=== PATIENT | male | born 1945 | race Caucasian/White ===

== ENCOUNTER 2017-10-15 13:31 | Observation (INO) ==
[2017-10-15] MEDS ORDERED: Isovue-370 500 ML INFUS..BTL IV ONE (13:41)
[2017-10-15 14:09] LABS: Basophils % 0.5 %; Eosinophils # 0.1 K/mcL (0.0-0.6); Eosinophils % 1.6 %; Hematocrit 41.3 % (37.5-50.1); Hemoglobin 14.9 g/dL (12.9-16.9); Immature Granulocytes % 0.3 % (0-4); Lymphocytes # 2.6 K/mcL (0.6-4.6); Lymphocytes % 32.5 %; Mean Corpuscular HGB Conc 36.1 g/dL (31.6-35.5); Mean Corpuscular Hemoglobin 30.9 pg (28.0-33.3); Mean Corpuscular Volume 85.7 fL (83.0-100.0); Mean Platelet Volume 8.9 fL (9.4-12.4); Monocytes # 0.5 K/mcL (0.0-1.3); Monocytes % 6.7 %; Neutrophils # 4.6 K/mcL (1.6-8.9); Platelet Count 151 K/mcL (140-400); Red Blood Count 4.82 M/mcL (4.19-5.50); Red Cell Distribution Width 13.2 % (11.5-14.5); Segmented Neutrophils % 58.4 %
[2017-10-15 14:15] LABS: INR 1.1; Prothrombin Time 12.5 Seconds (9.4-12.1)
[2017-10-15 14:18] LABS: Activated Partial Thrombo Time 30.5 Seconds (26.0-36.0)
[2017-10-15 14:26] LABS: VBG HCO3 24 mEq/L (21-27); VBG PCO2 39 mmHg (41-51); VBG PO2 98 mmHg (25-50)
[2017-10-15 14:29] LABS: Troponin I < 0.03 ng/mL (< 0.04)
[2017-10-15 14:30] LABS: Alanine Aminotransferase 42 Units/L (7-52); Albumin/Globulin Ratio 1.5 (1.1-2.2); Alkaline Phosphatase 69 Units/L (34-104); Aspartate Amino Transferase 31 Units/L (13-39); BUN/Creatinine Ratio 13 (6-26); Bilirubin,Direct 0.3 mg/dL (0.0-0.2); Bilirubin,Total 1.3 mg/dL (0.3-1.0); Blood Urea Nitrogen 12 mg/dL (8-23); Calcium 9.3 mg/dL (8.6-10.3); Carbon Dioxide 22 mEq/L (23-29); Chloride 103 mEq/L (98-107); Globulin 2.7 g/dL (2.4-3.5); Glucose 403 mg/dL (70-105); Lipase 20 Units/L (11-82); Osmolality,Calculated 301 (280-300); Potassium 3.9 mEq/L (3.5-5.1); Sodium 137 mEq/L (136-145); Total Protein 6.7 g/dL (6.4-8.9); eGFR For Non-African Americans > 60 (> 60)
--- NOTE | 2017-10-15 14:34 | Emergency Department Note ---
Disposition Clinical Impression: Unstable angina, Symptomatic bradycardia Disposition: Admitted As Inpatient Condition: Good Referrals: Carroll Aguilar DO [Primary Care Provider] - Forms: ED Satisfaction Letter Time of Disposition: 19:30 General Adult HPI - General Chief complaint: ED Weakness Stated complaint: Low HR Time Seen by Provider: 10/15/17 13:37 Source: patient Limitations: no limitations Nursing Notes Reviewed: Yes Vital Signs Reviewed: Yes - History of Present Illness HPI Narrative: 72 year old male prsente to the eD with complaints of exertinoal dyspnea and states that he has risk factors for ACS including HTN, bordelrine cholesterol, diabetes and age. Patient states that over the past 24-48 hours he has been experincing icnreased exertional dyspnea and cannot walk more than 5 feet withtu being short of breath without be hypoxic and a few times mateo he has checked his heart and it has been as low as 38-42 which is unusual. He states that he chekced last night when he becamse increasingly short of breath after sitting and bouncing a basketball with his granddauther and at that time it was in the 40s, and then today when he was getting diabetic labs checked and walking to the counter he felt short of breath again and it was 36. He also has been experinicng dull full sensaotin in his frontal forehead that has been ther for a a few weeks now which he attributes to sinsus congestion. Denissenet states that he had a cardiac catherization/workup about 10 years ago without knowing or remebering the results. He is morbidly obese and states that he does not wear supplemntal oxygen at home Pain Scale: 0 - Related Data Home Medications Medication Instructions Recorded Confirmed Glimepiride [Amaryl] 4 mg PO BID 05/21/16 10/15/17 Ibuprofen [Motrin] 800 mg PO Q8HR PRN 05/21/16 10/15/17 SitaGLIPtin [Januvia] 100 mg PO DAILY 05/21/16 10/15/17 Allergies Allergy/AdvReac Type Severity Reaction Status Date / Time pregabalin [From Lyrica] AdvReac Chest Pain Verified 05/21/16 10:11 Constitutional: Reports: weakness. Denies: fever, chills, weight change Eyes: Denies: eye pain, eye discharge, vision change ENT ED: Denies: ear pain, throat pain, dental pain, hearing loss, epistaxis, congestion, dysphagia Cardiovascular: Denies: chest pain, palpitations, dyspnea on exertion, edema, syncope Respiratory: Reports: dyspnea. Denies: cough, wheezes, hemoptysis, stridor Gastrointestinal: Denies: abdominal pain, nausea, vomiting, diarrhea, constipation, hematemesis, melena, hematochezia Genitourinary: Denies: urgency, dysuria, frequency, hematuria Musculoskeletal: Denies: back pain, neck pain, arthralgia, myalgia Integumentary: Denies: rash, abrasion, lesions Neurological: Reports: headache, weakness. Denies: numbness, paresthesias, confusion, abnormal gait, vertigo Psychiatric: Denies: anxiety, depression, suicidal thoughts, homicidal thoughts , auditory hallucinations, visual hallucinations Endocrine: Denies: fatigue Hematological/Lymphatic: Denies: easy bleeding, easy bruising Allergic/Immunologic: Denies: facial swelling, urticaria Past Medical History - Past Medical History Medical history: Reports: diabetes Surgical history: Reports: orthopedic, other, other Psychiatric history: Reports: no psych history - Social History Smoking Status: Current every day smoker Smokeless Tobacco Status: No Alcohol use: Reports: occasionally Drug use: Reports: none Physical Exam - General Limitations: no limitations General appearance: alert, in no apparent distress, obese - Head Head exam: atraumatic, normocephalic, normal inspection - Eye Eye exam: Present: normal appearance, PERRL, EOMI - Expanded Eye Exam Pupils: Bilateral: reactive - ENT ENT exam: normal exam, normal oropharynx, mucous membranes moist - Expanded ENT Exam External ear exam: Present: normal external inspection Mouth exam: Present: normal external inspection Teeth exam: Present: normal inspection Throat exam: Present: normal inspection - Neck Neck exam: Present: normal inspection, full ROM, trachea midline - Chest Chest inspection: Present: normal inspection, symmetric chest wall rise - Respiratory Respiratory exam: Present: normal lung sounds bilaterally - Cardiovascular Cardiovascular exam: Present: regular rate, normal rhythm, normal heart sounds - Abdominal Exam Abdominal exam: Present: soft, Non-Tender. Absent: tenderness, distention, guarding, rebound, rigidity - Extremities Exam Extremities exam: Present: normal inspection, full ROM. Absent: tenderness, pedal edema - Expanded Upper Extremity Exam Shoulder exam: Present: normal inspection, full ROM Arm exam: Present: normal inspection, full ROM Elbow exam: Present: normal inspection, full ROM Forearm/Wrist exam: Present: normal inspection, full ROM Hand exam: Present: normal inspection, full ROM Vascular exam: Normal: capillary refill, radial pulse - Expanded Lower Extremity Exam Hip/Pelvis exam: Present: normal inspection, full ROM Upper leg exam: Present: normal inspection, full ROM Knee exam: Present: normal inspection, full ROM Lower leg exam: Present: normal inspection, full ROM Ankle exam: Present: normal inspection, full ROM Foot/toe exam: Present: normal inspection, full ROM Neurovascular/Tendon exam: Absent: motor deficit, sensory deficit, tendon deficit - Back Exam Back exam: Present: normal inspection, full ROM. Absent: tenderness - Neurological Exam Neurological exam: Present: alert, oriented X3 - Expanded Neurological Exam Patient oriented to: Present: person, place, time Coma Scale Eye Opening: Spontaneous Coma Scale Motor Response: Obeys Commands Coma Scale Verbal Response: Oriented Coma Scale Total: 15 - Psychiatric Psychiatric exam: Present: normal affect, normal mood - Skin Skin exam: Present: warm, dry, intact, normal color Course Course Narrative: my concernd is for exertional dyspnea which could be related to cardiac pathology especially due to his risk factors. Merline admit to medicne vital signs are impring. BP is 146/80 and HR is 79. - Reevaluation(s) Reevaluation #1: discussed results with tatum and he is wiling to be admited to the hosital for further workup Time: 18:03 - Consultations Consultation #1: discussed case with Dr. Burns and he accepts mark for admission Time: 19:29 Vital Signs Temperature 98.0 F 10/15/17 13:32 Pulse Rate 38 10/15/17 13:32 Respiratory Rate 16 10/15/17 13:32 Blood Pressure 229/176 10/15/17 13:32 O2 Sat by Pulse Oximetry 96 10/15/17 13:32 Temperature 98.0 F 10/15/17 14:13 Pulse Rate 66 10/15/17 17:09 Respiratory Rate 16 10/15/17 14:13 Blood Pressure 144/74 10/15/17 17:09 O2 Sat by Pulse Oximetry 93 10/15/17 17:09 Oxygen Delivery Oxygen Delivery Room Air Medical Decision Making - Medical Records Medical records reviewed: Yes I reviewed the patient's medical records. - Lab Data Lab results reviewed: Yes I reviewed the patient's lab results. Result diagrams: 10/15/17 13:55 10/15/17 13:55 Lab Results 10/15/17 10/15/17 10/15/17 Range/Units 13:55 13:55 13:55 WBC 7.9 (4.3-11.1) K/mcL RBC 4.82 (4.19-5.50) M/mcL Hgb 14.9 (12.9-16.9) g/dL Hct 41.3 (37.5-50.1) % MCV 85.7 (83.0-100.0) fL MCH 30.9 (28.0-33.3) pg MCHC 36.1 H (31.6-35.5) g/dL RDW 13.2 (11.5-14.5) % Plt Count 151 (140-400) K/mcL MPV 8.9 L (9.4-12.4) fL Immature Gran % 0.3 (0-4) % Seg Neutrophils % 58.4 % Lymphocytes % 32.5 % Monocytes % 6.7 % Eosinophils % 1.6 % Basophils % 0.5 % Neutrophils # 4.6 (1.6-8.9) K/mcL Lymphocytes # 2.6 (0.6-4.6) K/mcL Monocytes # 0.5 (0.0-1.3) K/mcL Eosinophils # 0.1 (0.0-0.6) K/mcL Basophils # 0.0 (0.0-0.2) K/mcL PT 12.5 H (9.4-12.1) Seconds INR 1.1 APTT 30.5 (26.0-36.0) Seconds VBG pH (7.32-7.42) pH Units VBG pCO2 (41-51) mmHg VBG pO2 (25-50) mmHg VBG HCO3 (21-27) mEq/L Sodium (136-145) mEq/L Potassium (3.5-5.1) mEq/L Chloride (98-107) mEq/L Carbon Dioxide (23-29) mEq/L BUN (8-23) mg/dL Creatinine (0.70-1.30) mg/dL Est GFR ( Amer) (> 60) Est GFR (Non-Af Amer) (> 60) BUN/Creatinine Ratio (6-26) Glucose (70-105) mg/dL Calculated Osmolality (280-300) Calcium (8.6-10.3) mg/dL Total Bilirubin (0.3-1.0) mg/dL Direct Bilirubin (0.0-0.2) mg/dL Indirect Bilirubin (0.0-1.2) mg/dL AST (13-39) Units/L ALT (7-52) Units/L Alkaline Phosphatase (34-104) Units/L Troponin I (< 0.04) ng/mL B-Natriuretic Peptide 24 (Less than 100) pg/mL Serum Total Protein (6.4-8.9) g/dL Albumin (3.5-5.7) g/dL Globulin (2.4-3.5) g/dL Albumin/Globulin Ratio (1.1-2.2) Lipase (11-82) Units/L Beta-Hydroxybutyric Acd (0.02-0.27) mmol/L Urine Color (Yellow) Urine Clarity (Clear) Urine pH (5.0-8.0) pH Units Ur Specific Dodge (1.010-1.025) Urine Protein (Neg-Trace) mg/dL Urine Glucose (UA) (Normal) mg/dL Urine Ketones (Negative) mg/dL Urine Blood (Negative) Urine Nitrite (Negative) Urine Bilirubin (Negative) Urine Urobilinogen (Normal) mg/dL Ur Leukocyte Esterase (Negative) Ur Culture Indicated? (NO) 10/15/17 10/15/17 10/15/17 Range/Units 13:55 13:55 14:23 WBC (4.3-11.1) K/mcL RBC (4.19-5.50) M/mcL Hgb (12.9-16.9) g/dL Hct (37.5-50.1) % MCV (83.0-100.0) fL MCH (28.0-33.3) pg MCHC (31.6-35.5) g/dL RDW (11.5-14.5) % Plt Count (140-400) K/mcL MPV (9.4-12.4) fL Immature Gran % (0-4) % Seg Neutrophils % % Lymphocytes % % Monocytes % % Eosinophils % % Basophils % % Neutrophils # (1.6-8.9) K/mcL Lymphocytes # (0.6-4.6) K/mcL Monocytes # (0.0-1.3) K/mcL Eosinophils # (0.0-0.6) K/mcL Basophils # (0.0-0.2) K/mcL PT (9.4-12.1) Seconds INR APTT (26.0-36.0) Seconds VBG pH 7.40 (7.32-7.42) pH Units VBG pCO2 39 L (41-51) mmHg VBG pO2 98 H (25-50) mmHg VBG HCO3 24 (21-27) mEq/L Sodium 137 (136-145) mEq/L Potassium 3.9 (3.5-5.1) mEq/L Chloride 103 (98-107) mEq/L Carbon Dioxide 22 L (23-29) mEq/L BUN 12 (8-23) mg/dL Creatinine 0.94 (0.70-1.30) mg/dL Est GFR ( Amer) > 60 (> 60) Est GFR (Non-Af Amer) > 60 (> 60) BUN/Creatinine Ratio 13 (6-26) Glucose 403 H (70-105) mg/dL Calculated Osmolality 301 H (280-300) Calcium 9.3 (8.6-10.3) mg/dL Total Bilirubin 1.3 H (0.3-1.0) mg/dL Direct Bilirubin 0.3 H (0.0-0.2) mg/dL Indirect Bilirubin 1.0 (0.0-1.2) mg/dL AST 31 (13-39) Units/L ALT 42 (7-52) Units/L Alkaline Phosphatase 69 (34-104) Units/L Troponin I < 0.03 (< 0.04) ng/mL B-Natriuretic Peptide (Less than 100) pg/mL Serum Total Protein 6.7 (6.4-8.9) g/dL Albumin 4.0 (3.5-5.7) g/dL Globulin 2.7 (2.4-3.5) g/dL Albumin/Globulin Ratio 1.5 (1.1-2.2) Lipase 20 (11-82) Units/L Beta-Hydroxybutyric Acd 0.17 (0.02-0.27) mmol/L Urine Color (Yellow) Urine Clarity (Clear) Urine pH (5.0-8.0) pH Units Ur Specific Dodge (1.010-1.025) Urine Protein (Neg-Trace) mg/dL Urine Glucose (UA) (Normal) mg/dL Urine Ketones (Negative) mg/dL Urine Blood (Negative) Urine Nitrite (Negative) Urine Bilirubin (Negative) Urine Urobilinogen (Normal) mg/dL Ur Leukocyte Esterase (Negative) Ur Culture Indicated? (NO) 10/15/17 Range/Units 14:41 WBC (4.3-11.1) K/mcL RBC (4.19-5.50) M/mcL Hgb (12.9-16.9) g/dL Hct (37.5-50.1) % MCV (83.0-100.0) fL MCH (28.0-33.3) pg MCHC (31.6-35.5) g/dL RDW (11.5-14.5) % Plt Count (140-400) K/mcL MPV (9.4-12.4) fL Immature Gran % (0-4) % Seg Neutrophils % % Lymphocytes % % Monocytes % % Eosinophils % % Basophils % % Neutrophils # (1.6-8.9) K/mcL Lymphocytes # (0.6-4.6) K/mcL Monocytes # (0.0-1.3) K/mcL Eosinophils # (0.0-0.6) K/mcL Basophils # (0.0-0.2) K/mcL PT (9.4-12.1) Seconds INR APTT (26.0-36.0) Seconds VBG pH (7.32-7.42) pH Units VBG pCO2 (41-51) mmHg VBG pO2 (25-50) mmHg VBG HCO3 (21-27) mEq/L Sodium (136-145) mEq/L Potassium (3.5-5.1) mEq/L Chloride (98-107) mEq/L Carbon Dioxide (23-29) mEq/L BUN (8-23) mg/dL Creatinine (0.70-1.30) mg/dL Est GFR ( Amer) (> 60) Est GFR (Non-Af Amer) (> 60) BUN/Creatinine Ratio (6-26) Glucose (70-105) mg/dL Calculated Osmolality (280-300) Calcium (8.6-10.3) mg/dL Total Bilirubin (0.3-1.0) mg/dL Direct Bilirubin (0.0-0.2) mg/dL Indirect Bilirubin (0.0-1.2) mg/dL AST (13-39) Units/L ALT (7-52) Units/L Alkaline Phosphatase (34-104) Units/L Troponin I (< 0.04) ng/mL B-Natriuretic Peptide (Less than 100) pg/mL Serum Total Protein (6.4-8.9) g/dL Albumin (3.5-5.7) g/dL Globulin (2.4-3.5) g/dL Albumin/Globulin Ratio (1.1-2.2) Lipase (11-82) Units/L Beta-Hydroxybutyric Acd (0.02-0.27) mmol/L Urine Color Yellow (Yellow) Urine Clarity Clear (Clear) Urine pH 5.5 (5.0-8.0) pH Units Ur Specific Dodge > 1.030 H (1.010-1.025) Urine Protein Negative (Neg-Trace) mg/dL Urine Glucose (UA) >=1000 H (Normal) mg/dL Urine Ketones Negative (Negative) mg/dL Urine Blood Negative (Negative) Urine Nitrite Negative (Negative) Urine Bilirubin Negative (Negative) Urine Urobilinogen Normal (Normal) mg/dL Ur Leukocyte Esterase Negative (Negative) Ur Culture Indicated? NO (NO) - Radiology Data Radiology results reviewed: Yes I reviewed the patient's radiology results. - EKG Data EKG #1 EKG attestation: Yes I reviewed and interpreted this EKG. EKG results narrative: NSR with rate of 69, NV interval os 212, no STEMI. PVCs presents. change from 04/12/12. [id number]
[2017-10-15 14:59] LABS: Bilirubin,Urine Negative (Negative); Blood,Urine Negative (Negative); Clarity,Urine Clear (Clear); Color,Urine Yellow (Yellow); Glucose,Urine (UA) >=1000 mg/dL (Normal); Ketones,Urine Negative (Negative); Leukocyte Esterase,Urine Negative (Negative); Nitrite,Urine Negative (Negative); PH,Urine 5.5 pH Units (5.0-8.0); Protein,Urine Negative (Neg-Trace); Specific Gravity,Urine > 1.030 (1.010-1.025); Urobilinogen,Urine Normal (Normal)
[2017-10-15] MEDS: Isovue-370 500 ML INFUS..BTL IV ONE ×2 (15:17→15:31)
[2017-10-15] MEDS ORDERED: Aspirin 325 MG TABLET PO ONE (18:03)
[2017-10-15] MEDS ORDERED: Naloxone 0.4 MG/ML INJ IVP PRN (20:17)
[2017-10-15] MEDS ORDERED: D5% in Water 1,000 ML IVC PRN (20:20)
[2017-10-15] MEDS ORDERED: *HR* Dextrose 50 % in Water (Syg) 50 ML SYRINGE IVP PRN (20:20)
[2017-10-15] MEDS ORDERED: Dextrose Gel 15 GM/37.5 ML TUBE PO PRN ×2 (20:20)
--- NOTE | 2017-10-15 20:44 | Internal Med History&Physical ---
Date of Encounter: 10/15/17 Time of Encounter: 20:30 Internal Medicine - H&P: HPI Chief complaint: fatigue History of present illness: Mr. Dang is a 72 year old male with past medical history of diabetes, hypertension not on medication, ex-smoker, presented to the ED with 4 week history of fatigue and progressive exertional dyspnea. States that he has not been able to do the activities that he used to carry out without difficulties such as walking more than 5 feet and playing with his granddaughter by bouncing a basketball. Yesterday, his son-in-law measured his HR and was noted to be 42. This AM, he went to get his bloodwork done where he asked them to check his HR and it was again noted to be low at 36 hence he came to the ED for further evaluation. Denies any chest pain, orthopnea, PND, or leg swelling. The risk/chills, nausea/vomiting, abdominal pain, dysuria, or change in bowel habits. No joint pain or rash. In the ED, his initial heart rate was recorded to be 38 with a blood pressure of 216/179 which I believe it was a false number. On repeat measurement, his HR was noted to be 66 with BP of 144/74. Labs were unremarkable with the exception of hyperglycemia all 403. He admits that he has not been seeing a doctor for diabetes follow-up for the last 5 years. EKG showed normal sinus rhythm with a rate of 70. CTA thorax/abdomen/ pelvis was done which was unrevealing. He was admitted for overnight telemetry. Past Med Surg Social Fam HX - Past Medical History Attestation: Yes The following information was validated with the patient. Medical history: diabetes, hypertension Psychiatric history: no psych history - Past Surgical History Surgical History: orthopedic, other, other Additional surgical history: eye surgery - perianal abscess - - Social History Smoking Status: Current every day smoker Smokeless Tobacco Status: No Alcohol use: occasionally Drug use: none Internal Medicine - H&P: Meds Glimepiride [Amaryl] 4 mg PO BID 05/21/16 [History] Ibuprofen [Motrin] 800 mg PO Q8HR PRN 05/21/16 [History] SitaGLIPtin [Januvia] 100 mg PO DAILY 05/21/16 [History] 3 Allergy/AdvReac Type Severity Reaction Status Date / Time pregabalin [From Lyrica] AdvReac Chest Pain Verified 05/21/16 10:11 All Systems PM: A 10-system review of systems was performed and is negative for pertinent findings except as documented above in the HPI. - Constitutional Vitals: Temp Pulse Resp BP Pulse Ox 98.0 F 66 18 153/83 93 10/15/17 14:13 10/15/17 17:09 10/15/17 19:52 10/15/17 19:52 10/15/17 17:09 Exam: General: Alert and oriented HEENT:EOM, pupils equal, round, and reactive. Cardiovascular:Normal S1 & S2, no murmurs or gallops. No JVD. Pulse regular. Lungs:Normal breath sounds, no wheezes or crackles. Abdomen:Soft, non-tender, no rigidity. Extremities:No deformity, no edema or tenderness, no joint swelling. Neurological:Normal cognition and motor skills. Skin:Normal color, no rash, no lesions. Pulses:Carotid and radial pulses normal +2. Rest of the physical exam is non-contributory Internal Med - H&P Results - Labs CBC & Chem 7: 10/15/17 13:55 10/15/17 13:55 - Assessment and plan (1) Symptomatic bradycardia Current Visit: Yes Status: Acute Assessment and plan: Presented with progressive exertional dyspnea over the last 4 weeks in the setting of 2 separate occasions measuring heart rate in the range of high 30s to 40s Unfortunately, we do not have any rhythm strips or EKG to document what rhythm he was in Current EKG shows NSR with rate of 70 troponin -ve x 1, trend to rule out ACS check TSH overnight telemetry, if abnormal, consider consulting cardiology depending on what rhythm it is patient is not keen for inpatient ischemic workup (2) Diabetes Current Visit: Yes Status: Chronic Assessment and plan: Blood glucose of 403 on presentation, admits to not following up with his PCP for diabetic care On Amaryl and Januvia at home Hold off on OHGA, will start basal +sliding scale coverage check A1c Qualifiers: Diabetes mellitus type: type 2 Diabetes mellitus retirement insulin use: without intermediate project manager use Diabetes mellitus complication status: with unspecified complications Qualified Code(s): E11.8 - Type 2 diabetes mellitus with unspecified complications (3) Hypertension Current Visit: No Status: Acute Assessment and plan: Apparently developed severe "reaction" to the medication outpatient follow up Qualifiers: Hypertension type: unspecified Qualified Code(s): I10 - Essential (primary ) hypertension (4) DVT prophylaxis Current Visit: Yes Status: Acute Assessment and plan: scd - Time Spent With Patient Total time spent is greater than 50% in coordination of care (as documented) at patient's floor/unit and/or counseling patient:
[2017-10-15] MEDS ORDERED: Insulin DETEMIR 100 UNIT/ML X5UNITS SQ SCH (21:00)
[2017-10-15] MEDS ORDERED: Insulin LISPRO 300 UNITS/3 ML VIAL SQ SCH (21:00)
[2017-10-15 23:01] LABS: Estimated Average Glucose 249 mg/dl; Hemoglobin A1C 10.3 %
[2017-10-16 04:25] LABS: Basophils # 0.1 K/mcL (0.0-0.2); Basophils % 0.7 %; Eosinophils # 0.2 K/mcL (0.0-0.6); Eosinophils % 2.4 %; Hematocrit 38.3 % (37.5-50.1); Hemoglobin 13.5 g/dL (12.9-16.9); Immature Granulocytes % 0.3 % (0-4); Lymphocytes # 2.8 K/mcL (0.6-4.6); Lymphocytes % 38.6 %; Mean Corpuscular HGB Conc 35.2 g/dL (31.6-35.5); Mean Corpuscular Hemoglobin 29.7 pg (28.0-33.3); Mean Corpuscular Volume 84.2 fL (83.0-100.0); Mean Platelet Volume 8.9 fL (9.4-12.4); Monocytes # 0.7 K/mcL (0.0-1.3); Monocytes % 9.4 %; Neutrophils # 3.5 K/mcL (1.6-8.9); Platelet Count 145 K/mcL (140-400); Red Blood Count 4.55 M/mcL (4.19-5.50); Red Cell Distribution Width 13.3 % (11.5-14.5); Segmented Neutrophils % 48.6 %
[2017-10-16 04:44] LABS: BUN/Creatinine Ratio 18 (6-26); Blood Urea Nitrogen 14 mg/dL (8-23); Calcium 9.2 mg/dL (8.6-10.3); Carbon Dioxide 27 mEq/L (23-29); Chloride 104 mEq/L (98-107); Glucose 227 mg/dL (70-105); Magnesium 1.7 mg/dL (1.6-2.6); Osmolality,Calculated 290 (280-300); Potassium 3.7 mEq/L (3.5-5.1); Sodium 136 mEq/L (136-145); eGFR For Non-African Americans > 60 (> 60)
[2017-10-16 06:57] VITALS: BP 157/71
[2017-10-16] MEDS: Insulin LISPRO 300 UNITS/3 ML VIAL SQ SCH ×2 (08:12→12:26)
--- NOTE | 2017-10-16 13:55 | Discharge Summary ---
- NOTES TO OUTPATIENT PROVIDER Notes to Outpatient Provider: Patient admitted w/Bradycardia. Reports sx of dizziness. Echocardiogram today shows LVEF of 55%, mild concentric left ventricular hypertrophy, mild left ventricular diastolic dysfunction, normal right ventricular structure and function, no significant valvular dysfunction, and no pulmonary hypertension. Follow-up with cardiology in one week post discharge. Pt. also reports poor control of DM for the past five years. States he now has the equipment to monitor at home. Will need monitoring by PCP. Date of Encounter: 10/16/17 Time of Encounter: 10:30 - Discharge Diagnosis (1) Symptomatic bradycardia Priority: Primary Status: Acute Assessment and Plan: Presented with progressive exertional dyspnea over the last 4 weeks in the setting of 2 separate occasions measuring heart rate in the range of high 30s to 40s Unfortunately, we do not have any rhythm strips or EKG to document what rhythm he was in Current EKG shows NSR with rate of 70 TSH 2.345 HR in 50s on 10/15 and 10/16 w/some BP elevation Follow up w/Cardiology post-discharge for medication mgmt. (2) Hypertension Priority: Primary Status: Acute Assessment and Plan: Acute HTN. Pt. does not currently take anti-hypertension medications. F/u w/ Cardiology and/or PCP for medication mgmt. 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 Dang is a 72 year old male who presented w/symptomatic bradycardia w/HR in the 30s to 40s. Pt. states he experienced dizziness w/symptoms. Echocardiogram today showed LVEF of 55%, mild concentric left ventricular hypertrophy, mild left ventricular diastolic dysfunction, normal right ventricular structure and function, no significant valvular dysfunction, and no pulmonary hypertension. Pt. also reports he does not control his DM well for the past 5 years. States he now has equipment to check at home. Will require Cardiology f/u for bradycardia and new onset of HTN (needs medications and mgmt) , as well as DM control w/PCP. Discharge discussed with: patient - Time Spent with Patient Total time spent providing and/or coordinating discharge services: Less than 30 minutes Specific discharge activities: Follow-up w/Cardiology regarding bradycardia and HTN. F/u w/PCP for DM control and mgmt. - Discharge Medications Home Medications: Glimepiride [Amaryl] 4 mg PO BID 05/21/16 [History] Ibuprofen [Motrin] 800 mg PO Q8HR PRN 05/21/16 [History] SitaGLIPtin [Januvia] 100 mg PO DAILY 05/21/16 [History] Allergies/Adverse Reactions: 3 Allergy/AdvReac Type Severity Reaction Status Date / Time pregabalin [From Lyrica] AdvReac Chest Pain Verified 05/21/16 10:11 Date of admission: 10/15/17 19:48 Primary care physician: Carroll Aguilar DO Discharging clinician: Ky Banda Anticipated date of discharge: 10/16/17 - Constitutional Vitals: Temp Pulse Resp BP Pulse Ox 98 F 54 17 157/71 95 10/16/17 06:49 10/16/17 06:49 10/16/17 06:49 10/16/17 06:49 10/16/17 06:49 General appearance: Present: cooperative, A&O X 3, morbidly obese, pleasant, answers questions appropriately - Head Head exam: Present: atraumatic, normocephalic - Eye Eye exam: Present: PERRL, conjuntiva pink, sclera anicteric Pupils: Present: PERRL - ENT ENT exam: Present: normal exam - Neck Neck exam general surgery: Present: normal inspection, supple, trachea midline. Absent: lymphadenopathy - Respiratory Respiratory exam: Present: CTAB. Absent: accessory muscle use, rales, rhonchi, wheezes - Cardiovascular Cardiovascular exam: Present: bradycardia, +S1, +S2. Absent: diastolic murmur, gallop, rubs, systolic murmur - GI/Abdominal GI/Abdominal exam: Present: normal bowel sounds, soft, no peritoneal signs. Absent: distended, tenderness - Rectal Rectal exam: Present: deferred - Additional comments: exam deferred. - Extremities Exam Extremities exam: Present: warm, radial pulses palpable and symmetrical. Absent : calf tenderness, cyanotic, pedal edema - Back Exam Back exam: Present: normal inspection - Neurological Exam Neurological exam: Present: alert, CN II-XII intact, oriented X3, no focal deficits. Absent: pronater drift, facial droop, speech deficit - Psychiatric Psychiatric exam: Present: normal affect, normal mood - Skin Skin exam: Present: dry, intact - Patient Status Disposition: Home, Self-Care Condition: Good Overall status at discharge: patient is progressing back to baseline - Discharge Instructions Follow Up With: Carroll Aguilar DO [Primary Care Provider] - 10/21/17 9:30 am Wilma Mahan CNP [Partnered Physician] - 10/29/17 10:30 am - Diet and Activity Activity: increase activity as tolerated Diet: diabetic diet
--- NOTE | 2017-10-19 16:39 | Electrocardiograph Report ---
[address] [place] [address] Test Date: 2017-10-15 Pat Name: Giorgi Dang Department: 103 Room: 3B32 Gender: Safe Expert: EMORY : 1945 Requested By: Charlotte Cavanaugh Order Number: [id number] Reading MD: Noemy Del Valle Measurements Intervals [place] Rate: 69 P: 72 MN: 212 QRS: -11 QRSD: 110 T: 39 QT: 386 QTc: 405 Interpretive Statements SINUS RHYTHM WITH FIRST DEGREE AV BLOCK WITH VENTRICULAR PREMATURE COMPLEXES SEPTAL MYOCARDIAL INFARCTION [40+ ms Q WAVE IN V1/V2], PROBABLY OLD Electronically Signed On 10-19-2017 16:37:32 EDT by Noemy Del Valle
== END 2017-10-16 15:39 | disposition home or self-care (01) ==
LOC: 3BNU 13:31 → EMEROO 13:31 → 3BNU 20:08
PROVIDERS: ADMIT Internal Medicine; ATTEND Internal Medicine